=== PATIENT | male | born 1960 | race Caucasian/White ===

== ENCOUNTER 2025-05-28 21:31 | Observation (INO) | payer MEDICARE, OTHER ==
[2025-05-28] MEDS: Lactated Ringers 1,000 ML IV ONE (21:31)
[2025-05-28 22:03] LABS: BASOPHILS ABSOLUTE AUTO 0.0 x10^3/uL (0.0-0.2); BASOPHILS PERCENT AUTO 0.2 % (0.2-1.2); EOSINOPHILS ABSOLUTE AUTO 0.4 x10^3/uL (0.0-0.5); EOSINOPHILS PERCENT AUTO 2.8 % (0.0-4.0); IMMATURE GRAN ABSOLUTE AUTO 0.07 x10^3/uL (0.00-0.07); IMMATURE GRAN PERCENT AUTO 0.50 % (0.00-0.43); LYMPHOCYTES ABSOLUTE AUTO 1.9 x10^3/uL (1.0-4.8); LYMPHOCYTES PERCENT AUTO 12.7 % (25.0-50.0); MONOCYTES ABSOLUTE AUTO 1.3 x10^3/uL (0.0-0.8); MONOCYTES PERCENT AUTO 9.0 % (2.0-11.0); NEUTROPHILS ABSOLUTE AUTO 10.9 x10^3/uL (1.8-7.7); NEUTROPHILS PERCENT AUTO 74.8 % (50.0-80.0); PLATELET COUNT,PLT 227 x10^3/uL (130-400); RED BLOOD CELL COUNT 3.29 x10^6/uL (4.5-6.0); WHITE BLOOD CELL COUNT,WBC 14.6 x10^3/uL (4.0-10.0)
[2025-05-28 22:17] LABS: A/G RATIO 1.24; ALANINE AMINOTRANSFERASE,ALT 20.0 U/L (16-63); ASPARTATE AMNIOTRANSFERASE,AST 14.0 U/L (15-37); BILIRUBIN TOTAL 0.3 mg/dL (0.2-1.0); BLOOD UREA NITROGEN,BUN 28.0 mg/dL (7-18); CARBON DIOXIDE,CO2 30.0 mmol/L (21-32); CHLORIDE,CL 96.0 mmol/L (98-107); CREATININE 1.6 mg/dL (0.70-1.30); EST CRCL DRUG DOSING (CG) 41.96 mL/min; GLUCOSE RANDOM 88.0 mg/dL (70-99); POTASSIUM,K 3.7 mmol/L (3.5-5.1); PROTEIN TOTAL,TP 5.6 g/dL (6.4-8.2); SODIUM,NA 132.0 mmol/L (136-145)
[2025-05-28 22:19] LABS: ESTIMATED GFR 47.0 mL/min (>=60)
[2025-05-29 06:46] LABS: BASOPHILS ABSOLUTE AUTO 0.0 x10^3/uL (0.0-0.2); BASOPHILS PERCENT AUTO 0.2 % (0.2-1.2); EOSINOPHILS ABSOLUTE AUTO 0.6 x10^3/uL (0.0-0.5); EOSINOPHILS PERCENT AUTO 6.3 % (0.0-4.0); IMMATURE GRAN ABSOLUTE AUTO 0.02 x10^3/uL (0.00-0.07); IMMATURE GRAN PERCENT AUTO 0.20 % (0.00-0.43); LYMPHOCYTES ABSOLUTE AUTO 2.6 x10^3/uL (1.0-4.8); LYMPHOCYTES PERCENT AUTO 28.0 % (25.0-50.0); MONOCYTES ABSOLUTE AUTO 1.0 x10^3/uL (0.0-0.8); MONOCYTES PERCENT AUTO 10.7 % (2.0-11.0); NEUTROPHILS ABSOLUTE AUTO 5.1 x10^3/uL (1.8-7.7); NEUTROPHILS PERCENT AUTO 54.6 % (50.0-80.0); PLATELET COUNT,PLT 223 x10^3/uL (130-400); RED BLOOD CELL COUNT 3.12 x10^6/uL (4.5-6.0); WHITE BLOOD CELL COUNT,WBC 9.4 x10^3/uL (4.0-10.0)
[2025-05-29 07:05] LABS: BLOOD UREA NITROGEN,BUN 23.0 mg/dL (7-18); CARBON DIOXIDE,CO2 25.0 mmol/L (21-32); CHLORIDE,CL 101.0 mmol/L (98-107); CREATININE 1.0 mg/dL (0.70-1.30); EST CRCL DRUG DOSING (CG) 64.85 mL/min; GLUCOSE RANDOM 144.0 mg/dL (70-99); POTASSIUM,K 3.5 mmol/L (3.5-5.1); SODIUM,NA 133.0 mmol/L (136-145)
[2025-05-29 07:06] LABS: ESTIMATED GFR 83.0 mL/min (>=60)
== END 2025-05-29 12:10 | disposition short-term general hospital (02) ==
LOC: VM.ED 21:31 → VM.MS 22:47
PROVIDERS: ADMIT Internal Medicine; ATTEND Internal Medicine
DX: K92.2 Gastrointestinal hemorrhage, unspecified (principal); N17.9 Acute kidney failure, unspecified; I95.9 Hypotension, unspecified; K92.1 Melena; R55 Syncope and collapse; I10 Essential (primary) hypertension; I25.10 Atherosclerotic heart disease of native coronary artery without angina pectoris; Z79.899 Other long term (current) drug therapy
CPT/HCPCS: 36415; 80048; 80053; 84484; 85025; 99284; A9270-GY; J2470; J7030; J7120; Q3014